=== PATIENT | female | born 1950 | race Caucasian/White ===

== ENCOUNTER → 2023-09-09 15:00 | Outpatient (REF) | payer OTHER, SELFPAY | LOC: WDC 15:00 | PROVIDERS: ATTENDING PHYSICIAN Obstetrics & Gynecology Gynecology; FAMILY PHYSICIAN Family Medicine | DX: Z12.31 Encounter for screening mammogram for malignant neoplasm of breast (principal) | CPT/HCPCS: 77063; 77067 ==

== ENCOUNTER → 2024-08-31 08:43 | Outpatient (REF) | payer OTHER, SELFPAY | LOC: RAD 08:43 | PROVIDERS: ATTENDING PHYSICIAN Internal Medicine Endocrinology, Diabetes & Metabolism; FAMILY PHYSICIAN Family Medicine | DX: M81.0 Age-related osteoporosis without current pathological fracture (principal) | CPT/HCPCS: 77080 ==

== ENCOUNTER → 2024-09-13 13:51 | Outpatient (REF) | payer OTHER, SELFPAY | LOC: WDC 13:51 | PROVIDERS: ATTENDING PHYSICIAN Obstetrics & Gynecology Gynecology | DX: Z12.31 Encounter for screening mammogram for malignant neoplasm of breast (principal) | CPT/HCPCS: 77063; 77067 ==

== ENCOUNTER 2025-03-03 16:10 | Emergency (ER) | payer OTHER, SELFPAY ==
[2025-03-03 16:15] VITALS: BP 166/93
--- NOTE | 2025-03-03 19:36 | ED.MUSCINJ ---
HPI-Injury
General
Chief Complaint: Fall
Source: patient
Exam Limitations: none
Time Seen by Provider: 03/03/25 19:26
History of Present Illness-Injury
Initial Injury comments:
74-year-old female presents complaining of a fall. She tripped over a rock hitting the left forehead on another rock. No loss of consciousness. She is not anticoagulated. She also notes left brown pain. She lives by herself and was concerned
about the large bump on her forehead. Since waiting in the waiting room she has not had any new symptoms of nausea blurry vision or increasing headache
Phy Exam
Physical Exam
Physical Exam:
General: Well-appearing female no acute respiratory distress
HEENT normocephalic hematoma noted to the left forehead. Small abrasion noted. Pupils equal round reactive to light TMs normal
Musculoskeletal exam: The cervical spine is nontender good range of motion all extremities. She is slightly tender over the lateral left brown. She has good range of motion to the left knee and ankle no deformities
Neurologic normal gait alert and oriented conversing appropriately good strength to the upper and lower extremities
Injury Course
Orders/Labs/Results
Orders:
Orders
03/03/25 16:19
CT Head W/o Iv Contrast Urgent
Comment:
Reason For Exam: head injury
Tib/Fib, Left 2 View [CR Leg Tibia/fibula Left 2 Vw] Urgent
Comment:
Reason For Exam: fall, injury
MDM/Problems Addressed
Differential Diagnosis Includes:
Mechanical fall with head strike. Consider hematoma versus skull fracture versus intracranial hemorrhage. CT of the head was ordered which was negative for acute intracranial finding but demonstrates a scalp hematoma. X-ray of the left brown was
ordered to evaluate for fracture. This was negative. Suspect underlying contusion here. Recommended ibuprofen Tylenol and rest. No indication for admission. Stable for discharge
*Pulse Oximetry
SaO2: 97
Oxygen Mode of Delivery: Room air
Patient hypoxic: no
*Critical Care Note
Total Time (30-74mins, 75-104mins- exclusive of procedures): Not Applicable
ED Attending Note
-
Portions of this chart may have been created with voice recognition software.� Occasional wrong word or��sound alike� substitutions may have occurred due to the inherent limitations of voice recognition software.
Discharge Plan
Departure
Patient Disposition: Home (Routine Discharge)
Date of Disposition: 03/03/25
Time of Disposition: 19:38
Patient with high blood pressure during this ER visit?: No
Discharge Problem:
Hematoma
Instructions: Hematoma
Activity Restrictions/Additional Instructions:
You may ice to the sore spot. You can take Tylenol or ibuprofen if needed for pain. Return here for increasing headache vomiting or other concerning findings otherwise follow-up with your doctor
Discharge Date and Time
Print Language: MALDIVIAN
== END 2025-03-03 19:55 | disposition home or self-care (01) ==
LOC: EMR 16:10
PROVIDERS: EMERGENCY PHYSICIAN Emergency Medicine; FAMILY PHYSICIAN Surgery
DX: S00.83XA Contusion of other part of head, initial encounter (principal); W18.09XA Striking against other object with subsequent fall, initial encounter
CPT/HCPCS: 99284; 70450; 73590

== ENCOUNTER → 2025-07-12 06:24 | Outpatient (REF) | payer OTHER, SELFPAY | LOC: RAD 06:24 | PROVIDERS: ATTENDING PHYSICIAN Family Medicine | DX: R55 Syncope and collapse (principal); E03.8 Other specified hypothyroidism; M81.0 Age-related osteoporosis without current pathological fracture; Z86.79 Personal history of other diseases of the circulatory system | CPT/HCPCS: 93880 ==